=== PATIENT | female | born 1950 | race Caucasian/White ===

== ENCOUNTER → 2016-08-30 | Outpatient (CLI) | payer OTHER ==
[~2016-08-30] MED LIST: ACIPHEX 20 MG T20 MG PO; ADRUCIL500 MG/10 IV; AMLODIPINE BESY10 MG PO; ASPIR 8181 MG PO; ATIVAN0.5 MG PO; ATORVASTATIN CA40 MG PO; AZELASTINE137 MCG/0. NS; COMPAZINE10 MG PO; EFFIENT10 MG PO; ENOXAPARIN30 MG/0.1 SUBQ; FUROSEMIDE20 MG/2 ML IV PUSH; IBUPROFEN 800800 M1 PO; LIDOCAINE JELLY; LOMOTIL TABLET1 EACH PO; LOPRESSOR25 PO; MAGIC MOUTHWASH SWISH&SPIT; NEXIUM40 MG PO; NITROSTAT0.4 MG SUBLING; OXYCODONE HCL 55 MG PO; PATANOL5 ML OPHTHALMIC; PERIDEX 0.12%473 M1 TP; PLAVIX 75 MG TA75 M1 PO; POTASSIUM20 MEQ/15 PO; RABEPRAZOLE SOD20 MG PO; ROBITUSSIN DM118 ML PO; VANCOMYCIN1.25 GM/21 IV; VFEND IV; ZOFRAN ODT4 MG PO; ZOSYN 3.3753.375 GM IV
== END | disposition home or self-care (01) ==
LOC: RAD 10:07 → SPEC 10:19 → RAD 14:17
DX: Z45.2 Encounter for adjustment and management of vascular access device (principal)

== ENCOUNTER → 2019-09-03 | Outpatient (CLI) | payer OTHER | LOC: SJCVCIMAG 11:15 | DX: I25.10 Atherosclerotic heart disease of native coronary artery without angina pectoris (principal); I10 Essential (primary) hypertension; E78.00 Pure hypercholesterolemia, unspecified; K21.9 Gastro-esophageal reflux disease without esophagitis; I42.9 Cardiomyopathy, unspecified; Z98.61 Coronary angioplasty status; Z90.89 Acquired absence of other organs; Z88.8 Allergy status to other drugs, medicaments and biological substances; Z79.82 Long term (current) use of aspirin; Z79.891 Long term (current) use of opiate analgesic; Z79.899 Other long term (current) drug therapy; Z85.3 Personal history of malignant neoplasm of breast ==

== ENCOUNTER → 2021-01-16 | Outpatient (CLI) | payer OTHER | LOC: SJCVC 11:27 | PROVIDERS: ATTEND Internal Medicine Cardiovascular Disease | DX: E78.00 Pure hypercholesterolemia, unspecified (principal); I25.10 Atherosclerotic heart disease of native coronary artery without angina pectoris; I10 Essential (primary) hypertension; I25.2 Old myocardial infarction; K21.9 Gastro-esophageal reflux disease without esophagitis; E78.5 Hyperlipidemia, unspecified; I42.9 Cardiomyopathy, unspecified; Z95.5 Presence of coronary angioplasty implant and graft; Z88.8 Allergy status to other drugs, medicaments and biological substances; Z79.82 Long term (current) use of aspirin; Z79.899 Other long term (current) drug therapy; Z92.23 Personal history of estrogen therapy; Z92.3 Personal history of irradiation; Z85.048 Personal history of other malignant neoplasm of rectum, rectosigmoid junction, and anus ==

== ENCOUNTER → 2021-09-12 | Outpatient (CLI) | payer OTHER | LOC: SJCVCIMAG 13:55 | PROVIDERS: ATTEND Internal Medicine Cardiovascular Disease | DX: I25.10 Atherosclerotic heart disease of native coronary artery without angina pectoris (principal); I10 Essential (primary) hypertension; I25.5 Ischemic cardiomyopathy; E78.00 Pure hypercholesterolemia, unspecified; F41.9 Anxiety disorder, unspecified; K21.9 Gastro-esophageal reflux disease without esophagitis; E78.5 Hyperlipidemia, unspecified; Z88.8 Allergy status to other drugs, medicaments and biological substances; Z79.82 Long term (current) use of aspirin; Z79.899 Other long term (current) drug therapy ==